=== PATIENT | female | born 1930 | race Caucasian/White ===

== ENCOUNTER 2016-09-06 02:46 | Observation (INO) | payer OTHER, BC ==
[~2016-09-06] VITALS: Ht 165.1 cm; Wt 71.5 kg
[~2016-09-06 02:46] MED LIST: AMITRIPTYLINE H10 MG PO; AMLODIPINE BESY10 MG PO; ASPIR 8181 M1 PO; BACTRIM,SEPT1 TABLET PO; CARTIA XT120 MG PO; CELEXA20 MG PO; Coumadin,Jantoven PO; DURAGESIC25 MCG TD; ELIQUIS2.5 MG PO; LASIX40 MG PO; LIDODERM 5% P1 PATCH TD; Lovenox SC; OMEPRAZOLE40 M1 PO; PERCOCET 5/31 TABLET PO; Percocet 5/325,Endoc PO; SIMVASTATIN20 MG PO; SYNTHROID112 MCG PO
[2016-09-06 03:13] LABS: HEMATOCRIT 37.1 % (36.0-46.0); MCH 30.2 PG (29.0-34.0); MCHC 33.7 G/DL (30.0-36.0); MCV 89.6 FL (83-99); MEAN PLAT.VOLUME 11.3 uM^3 (9.5-12.4); PLATELET COUNT 196 K/uL (156-360); RBC DIS.WIDTH-CV 13.4 % (11.8-14.6); RBC DIS.WIDTH-SD 44.1 % (39-53); RED BLOOD COUNT 4.14 M/uL (3.80-5.20); WHITE BLOOD COUNT 13.6 K/uL (4.1-10.2)
[2016-09-06 03:25] LABS: CHLORIDE 101 mEq/L (99-109); POTASSIUM 3.7 mEq/L (3.7-5.4); SODIUM 138 mEq/L (136-147)
[2016-09-06 03:26] LABS: GLUCOSE 120 mg/dL (70-99)
[2016-09-06 03:28] LABS: ANION GAP 10 MEQ/L (2-14)
[2016-09-06 03:30] LABS: GFR ESTIMATE (CALCULATED) > 59 mL/min/
[2016-09-06 03:31] LABS: UREA NITROGEN (BUN) 13 mg/dL (9-23)
[2016-09-06 03:39] LABS: TROP-I INTERPRETATION NEGATIVE; TROPONIN-I < 0.01 ng/mL (0.0-0.30)
[2016-09-06] MEDS ORDERED: LEVOTHYROXINE100 MCG PO (04:55)
[2016-09-06] MEDS ORDERED: TRAMADOL HCL50 MG PO (04:56)
[2016-09-06] MEDS ORDERED: STOOL SOFTENER100 MG PO (04:57)
[2016-09-06] MEDS ORDERED: DURAGESIC50 MCG TD (04:57)
[2016-09-06] MEDS ORDERED: ASCORBIC ACID500 M3 PO (04:58)
[2016-09-06] MEDS ORDERED: CALCIUM 500-VI1 EAC1 PO (04:59)
[2016-09-06] MEDS ORDERED: RANITIDINE HCL150 M1 PO (04:59)
[2016-09-06] MEDS ORDERED: KLOR-CON SPRINK8 MEQ PO (04:59)
[2016-09-06 05:24] LABS: ADD MIUA? YES; BILIRUBIN NEGATIVE; BLOOD NEGATIVE; COLOR YELLOW ((YELLOW)); GLUCOSE (STRIP) NEGATIVE; KETONES NEGATIVE; LEUKOCYTES TRACE; NITRITE NEGATIVE; PROTEIN (STRIP) NEGATIVE; SPECIFIC GRAVITY 1.008 (1.000-1.030)
[2016-09-06 05:32] LABS: BACTERIA RARE /HPF; EPITHELIAL CELLS RARE /HPF; MUCUS NONE SEEN /LPF; RED BLOOD CELLS 0-5 /HPF (0-5); UCUL ADDED? NO; WHITE BLOOD CELLS 0-5 /HPF (0-5)
[2016-09-06 05:49] LABS: INTER. NORMALIZED RATIO 1.2; PROTHROMBIN TIME 13.1 SEC (10.2-12.9)
[2016-09-06 06:05] VITALS: BP 159/100
[2016-09-06 06:11] LABS: TOTAL BILIRUBIN 0.5 mg/dL (0.0-1.0)
[2016-09-06 06:12] LABS: ALKALINE PHOSPHATASE 127 IU/L (3-129)
[2016-09-06 06:14] LABS: DIRECT BILIRUBIN 0.3 mg/dL (0.0-0.3)
[2016-09-06 09:35] VITALS: BP 144/87
[2016-09-06 09:46] LABS: TROP-I INTERPRETATION NEGATIVE; TROPONIN-I < 0.01 ng/mL (0.0-0.30)
[2016-09-06 09:47] LABS: HDL CHOLESTEROL 73 MG/DL (Desirable>=50); LDL CHOLESTEROL 33 mg/dL (Desirable<100); NON-HDL CHOLESTEROL 39 mg/dL (Desirable<160); TOTAL CHOLESTEROL 112 mg/dL (Desirable<200); TRIGLYCERIDES 29 MG/DL (Normal: <150)
[2016-09-06 12:02] VITALS: BP 121/56
[2016-09-06] MEDS ORDERED: DOXYCYCLINE HY100 MG PO (13:43)
[2016-09-06 15:22] LABS: TROP-I INTERPRETATION NEGATIVE; TROPONIN-I 0.01 ng/mL (0.0-0.30)
== END 2016-09-06 16:01 | disposition home or self-care (01) ==
LOC: EME → EDBD 02:46 → EME 02:46 → EDOF 04:26 → ENRESERV 04:27 → 5WEST 05:50
PROVIDERS: Emergency Medicine; Physician Assistant Medical
DX: J18.9 Pneumonia, unspecified organism (principal); I48.2 Chronic atrial fibrillation; R07.89 Other chest pain; D72.829 Elevated white blood cell count, unspecified; I25.10 Atherosclerotic heart disease of native coronary artery without angina pectoris; Z95.5 Presence of coronary angioplasty implant and graft; Z79.01 Long term (current) use of anticoagulants; Z86.718 Personal history of other venous thrombosis and embolism; I10 Essential (primary) hypertension; E78.5 Hyperlipidemia, unspecified; E03.9 Hypothyroidism, unspecified; K21.9 Gastro-esophageal reflux disease without esophagitis; K44.9 Diaphragmatic hernia without obstruction or gangrene; M41.9 Scoliosis, unspecified; M48.06 Spinal stenosis, lumbar region; B37.9 Candidiasis, unspecified; Z79.82 Long term (current) use of aspirin
CPT/HCPCS: 71020; 71250; 80048; 80061; 80076; 81003; 83605; 83880; 84484; 85027; 85379; 85610; 85730; 87040; 93005; 99202; 99281; 99285; G0378; J0456; J0696; J7050; J7120

== ENCOUNTER 2017-01-01 12:44 | Emergency (ER) | payer OTHER, BC ==
[~2017-01-01] VITALS: Ht 167.6 cm; Wt 68.7 kg
[~2017-01-01 12:44] MED LIST changes: +ASCORBIC ACID500 M3 PO; +CALCIUM 500-VI1 EAC1 PO; +DOXYCYCLINE HY100 MG PO; +DURAGESIC50 MCG TD; +KLOR-CON SPRINK8 MEQ PO; +LEVOTHYROXINE100 MCG PO; +RANITIDINE HCL150 M1 PO; +STOOL SOFTENER100 MG PO; +TRAMADOL HCL50 MG PO
[2017-01-01 13:52] LABS: EOSINOPHIL (%) 0.8 % (0-5); EOSINOPHIL COUNT 0.1 K/uL (0-0.3); HEMATOCRIT 39.4 % (36.0-46.0); IMMATURE GRANULOCYTE (%) 0.2 % (0.0-0.7); INSTRUMENT ABS NEUTROPHIL CT 5.5 K/uL; LYMPHOCYTE COUNT 0.7 K/uL (1.0-2.8); MCHC 33.2 G/DL (30.0-36.0); MCV 90.2 FL (83-99); MEAN PLAT.VOLUME 11.5 uM^3 (9.5-12.4); MONOCYTE (%) 5.2 % (3-12); MONOCYTE COUNT 0.3 K/uL (0-0.8); NEUTROPHIL (%) 83.2 % (45-76); NEUTROPHIL COUNT 5.5 K/uL (1.8-6.4); PLATELET COUNT 201 K/uL (156-360); RBC DIS.WIDTH-CV 13.1 % (11.8-14.6); RBC DIS.WIDTH-SD 43.5 % (39-53); RED BLOOD COUNT 4.37 M/uL (3.80-5.20); WHITE BLOOD COUNT 6.6 K/uL (4.1-10.2)
[2017-01-01 14:03] LABS: CHLORIDE 101 mEq/L (99-109); POTASSIUM 3.5 mEq/L (3.7-5.4); SODIUM 139 mEq/L (136-147)
[2017-01-01 14:06] LABS: GLUCOSE 112 mg/dL (70-99)
[2017-01-01 14:07] LABS: ANION GAP 13 MEQ/L (2-14)
[2017-01-01 14:09] LABS: ALKALINE PHOSPHATASE 128 IU/L (3-129)
[2017-01-01 14:10] LABS: GFR ESTIMATE (CALCULATED) 56 mL/min/
[2017-01-01 14:11] LABS: UREA NITROGEN (BUN) 13 mg/dL (9-23)
[2017-01-01 14:13] LABS: TROP-I INTERPRETATION NEGATIVE; TROPONIN-I < 0.01 ng/mL (0.0-0.30)
[2017-01-01 15:11] VITALS: BP 150/81
== END 2017-01-01 15:13 | disposition home or self-care (01) ==
LOC: EME 12:44
PROVIDERS: Physician Assistant
DX: R07.9 Chest pain, unspecified (principal); E78.5 Hyperlipidemia, unspecified; I10 Essential (primary) hypertension; I48.91 Unspecified atrial fibrillation; E03.9 Hypothyroidism, unspecified; F41.9 Anxiety disorder, unspecified; Z79.01 Long term (current) use of anticoagulants; F32.9 Major depressive disorder, single episode, unspecified; K21.9 Gastro-esophageal reflux disease without esophagitis; Z88.8 Allergy status to other drugs, medicaments and biological substances
CPT/HCPCS: 71020; 80053; 83735; 84484; 85025; 93005; 99281; 99284